=== PATIENT | male | born 2000 | race Caucasian/White ===

== ENCOUNTER 2023-03-10 15:33 | Emergency (ER) | payer OTHER, SELFPAY ==
--- NOTE | ~2023-03-10 | XR_ITS ---
EXAMINATION: XR shoulder RT min 2V INDICATION: Right shoulder pain TECHNIQUE: Four views of the right shoulder are submitted. COMPARISON: None FINDINGS: Normal alignment. No fracture. Glenohumeral and acromioclavicular joint spaces are normal. Soft tissues are unremarkable. IMPRESSION: 1. No acute osseous abnormality. Reviewed, dictated and finalized at location F.
[2023-03-10 16:05] VITALS: BP 126/76; PULSE 99; RESP 18; TEMP 35.9; O2SAT 100
--- NOTE | 2023-03-10 16:26 | ED.UPPEXIN ---
HPI - Extremity Injury (Upper) General Chief Complaint: Extremity Injury, Upper <MARTHA Rahman BC - Last Filed: 03/10/23 17:55> Stated Complaint: Fell on shoulder <MARTHA Rahman BC - Last Filed: 03/10/23 17:55> Time Seen by Provider: 03/10/23 16:16 <MARTHA Rahman BC - Last Filed: 03/10/23 17:55> Source: patient and RN notes reviewed <MARTHA Rahman BC - Last Filed: 03/10/23 17:55> Mode of arrival: ambulatory <MARTHA Rahman BC - Last Filed: 03/10/23 17:55> Limitations: no limitations <MARTHA Rahman BC - Last Filed: 03/10/23 17:55> History of Present Illness HPI narrative: Patient presents today complaining of right shoulder injury. He was playing football around noon today when he tripped and fell onto his right shoulder. States the shoulder is swollen. Denies radiation of the pain. Denies numbness or tingling in the arm or hand. He denies pain at rest, but this increased 7/10 with movement. He has tried ice and ibuprofen with mild relief. <MARTHA Rahman BC - Last Filed: 03/10/23 17:55> Related Data Home Medications: Home Medications Medication Instructions Recorded Confirmed No Home Medications 03/10/23 03/10/23 <MARTHA Rahman BC - Last Filed: 03/10/23 17:55> Allergies/Adverse Reactions: Allergies Allergy/AdvReac Type Severity Reaction Status Date / Time No Known Allergies Allergy Verified 03/10/23 16:15 <MARTHA Rahman BC - Last Filed: 03/10/23 17:55> Review of Systems Review of Systems: CONSTITUTIONAL: Denies body aches, fever, chills, or sweats. EYES: Denies visual changes, redness, or discharge. ENT: Denies rhinorrhea, congestion, sore throat, or otalgia. CARDIOVASCULAR: Denies chest pain, palpitations, or edema. RESPIRATORY: Denies cough or dyspnea. GASTROINTESTINAL: Denies abdominal pain, nausea, vomiting, or diarrhea. GENITOURINARY: Denies dysuria or hematuria. SKIN: Denies rash, itching, or wounds. MUSCULOSKELETAL: Denies back pain. + right shoulder injury NEUROLOGIC: Denies headache, numbness, tingling, or weakness. PSYCH: Denies depression or anxiety. <MARTHA Rahman BC - Last Filed: 03/10/23 17:55> PMFSH Comments At time of signature, I have reviewed and agree with nursing past medical, surgical, social and family history unless otherwise noted. Please see nursing chart for further information. There is no relevant family history pertinent to the presenting complaint <MARTHA Rahman BC - Last Filed: 03/10/23 17:55> Exam Narrative: GENERAL: Well-appearing, well-nourished, and in no acute distress. HEAD: Normocephalic, atraumatic. EYES: EOMI. No redness or drainage. Conjunctivae normal. ENT: Mucous membranes pink and moist. NECK: Normal AROM. CHEST: No respiratory distress. EXTREMITIES: Right shoulder: Bony tenderness to the lateral shoulder with area of slight ecchymosis to the superior shoulder. No edema appreciated. No pain with P ROM, but patient has pain with AROM with forward extension and abduction. No pain with internal or external rotation. Distal sensation intact. Capillary refill normal. Radial pulse normal. 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 SKIN: Warm, dry, no rash. Capillary refill normal. Normal skin turgor. NEURO: No focal deficits. Alert and oriented x3. Gait steady. PSYCH: Normal affect. No signs of depression or anxiety. <MARTHA Rahman BC - Last Filed: 03/10/23 17:55> Course Course Emergency Course: As there is not a certified bench jeweler technician available at this location, patient has been sent to our [facility] location for x-ray and disposition. Discussed patient with Rachel Bartlett NP. <MARTHA Rahman BC - Last Filed: 03/10/23 17:55> Level of Care: Express Care Visit <LEVY RahmanP, - Last Filed: 03/10/23 17:55> Vital Signs Vital signs:
== END 2023-03-10 17:36 | disposition home or self-care (01) ==
PROVIDERS: Emergency Provider Nurse Practitioner Family
DX: S43.401A Unspecified sprain of right shoulder joint, initial encounter (principal); W01.0XXA Fall on same level from slipping, tripping and stumbling without subsequent striking against object, initial encounter; Y93.61 Activity, american tackle football
CPT/HCPCS: 73030; 99213; G0463